=== PATIENT | male | born 1970 | race Caucasian/White ===

== ENCOUNTER 2016-11-10 09:39 | Observation (INO) | payer OTHER ==
--- NOTE | ~2016-11-10 | DS ---
Discharge Summary [facility] [address] [place]. [address] NAME: DEVANTE BLANCAS : 70 STATUS : DIS Shwetha PAT#: [id number] AGE: 46 ADM/REG DATE : 11/10/16 MR#: [id number] REPORT SERV DATE: 11/12/16 DICTATED BY: JR. PEREZ WILLIAM JOHN DATE: 11/11/16 REPORT STATUS : Draft TRANSCRIBED BY: MODL DATE: 11/11/16 ADMISSION DATE: 11/10/2016 DISCHARGE DATE: 11/11/2016 DISCHARGE DIAGNOSES: 1. Orthostatic dizziness. 2. Hypertension. 3. Hyperlipidemia. OPERATIONS/PROCEDURES AND TREATMENTS: Include: 1. Echocardiogram done 11/11/2016, which was a borderline left ventricular systolic function, ejection fraction of 50% with right ventricle not well seen, but probably normal. There was no significant valvular regurgitation. Bubble study was poorly visualized. 2. MRI of the brain done 11/10/2016, showed no evidence of acute infarct or bleed. 3. MRA of the neck and head were normal studies. 4. Chest x-ray done 11/10/2016 showed no evidence of cardiopulmonary disease. 5. CT of the brain done 11/10/2016 was unremarkable. DISCHARGE MEDICATIONS: Include: 1. Wellbutrin 300 mg orally daily. 2. TriCor 145 mg every morning. 3. Pravachol 40 mg daily. 4. Metoprolol 50 mg orally daily. 5. Propranolol 10 mg orally daily as needed. 6. Altace 10 mg orally daily. HOSPITAL COURSE: The patient is a very pleasant 46-year-old male, who felt dizzy and faint while walking. Lowered himself to the ground, said he had some difficulty speaking. Symptoms totally resolved by the time he came to [facility]. Once in the emergency room, the patient was somewhat hypotensive. He did not have orthostasis. CT of the head in the emergency room was unremarkable. EKG unremarkable. The patient was admitted to the Clinical Decision Unit. He had an MRI of the head, MRA of the neck and head, and echocardiogram which are detailed above. He had repeat orthostatic vital signs. He was ambulated and had no further difficulty. It is suspected the patient was transiently hypotensive, possibly as a result of his antihypertensive medications. We have chosen to resume his metoprolol and lisinopril or MICHAEL inhibitor while holding his calcium channel tony. The patient will follow up with his primary care physician, Dr. Becerra in one to two weeks. DISCHARGE DIET: Regular. ACTIVITY: As tolerated. For discharge exam and laboratory, please see daily progress note. Discharge Summary [address] [place]. [address] NAME: DEVANTE BLANCAS : 70 STATUS : DIS Shwetha PAT#: [id number] AGE: 46 ADM/REG DATE : 11/10/16 MR#: [id number] REPORT SERV DATE: 11/12/16 DICTATED BY: JR. PEREZ WILLIAM JOHN DATE: 11/11/16 REPORT STATUS : Draft TRANSCRIBED BY: RAFA DATE: 11/11/16 WELEANOR/RAFA Keith Perez Jr, MD / [id number] CC: Keith Perez Jr, MD Kirk Wilcox, M.D.
--- NOTE | ~2016-11-10 | HP ---
History And Physical [id number] [place]. [address] NAME: DEVANTE BLANCAS : 70 STATUS : ADM Shwetha PAT#: [id number] AGE: 46 ADM/REG DATE : 11/10/16 MR#: [id number] REPORT SERV DATE: 11/10/16 DICTATED BY: MIKY TILLMAN DATE: 11/10/16 REPORT STATUS : Draft TRANSCRIBED BY: MODL DATE: 11/10/16 DATE OF ADMISSION: 11/10/2016 CHIEF COMPLAINT: Dizziness. HISTORY OF PRESENT ILLNESS: The patient is a very pleasant 46-year-old white male, who works at [employer] in the [employer]. He was helping with the play today and had an episode where he felt dizzy and faint. He lowered himself to the ground. He then had some what sounds like dysarthria and some difficulty with cognition. His arrived, drove him to the ER, about 30 minutes after the episode, the symptoms were totally resolved. He is now feeling well. He had some orthostatics in the ER. He was hypotensive, lying flat but then his blood pressure went up while standing. His heart rate did go up while standing but only about 9 beats per minute. He had no chest pain. No shortness of breath. He had a recent flu about two weeks ago was diagnosed, treated with Tamiflu and this was confirmed with the swab. He states he has been eating and drinking normally. He has a little bit of residual cough, but he has had no documented fevers. No nausea, vomiting, or diarrhea. He states his intake has been good as far as oral intake. PAST MEDICAL HISTORY: 1. Hypertension. 2. Traumatic brain injury. 3. Hyperlipidemia. PAST SURGICAL HISTORY: He had a spinal fusion. ALLERGIES: PENICILLIN, THE FLU VACCINE. SOCIAL HISTORY: He denies tobacco use. He works at [employer]. He drinks occasional alcohol but not consistently. FAMILY HISTORY: His mother and father both have hypertension. HOME MEDICATIONS: Reviewed and attached. REVIEW OF SYSTEMS: Full 10-point review of systems obtained. Pertinent positives as mentioned in the HPI. PHYSICAL EXAMINATION: CURRENT VITAL SIGNS: Blood pressure 121/73, sats 97%, pulse 64, temperature was 98.2 with a respiratory rate of 16. His lowest blood pressure was 95/70. He was not orthostatic in the emergency department. GENERAL: Well-developed white male, in no apparent distress. HEENT: Normocephalic, atraumatic. Throat is clear. NECK: Supple. HEART: Regular rate and rhythm. LUNGS: Grossly clear. History And Physical [address] [place]. [address] NAME: DEVANTE BLANCAS : 70 STATUS : ADM Shwetha PAT#: [id number] AGE: 46 ADM/REG DATE : 11/10/16 MR#: [id number] REPORT SERV DATE: 11/10/16 DICTATED BY: MIKY TILLMAN DATE: 11/10/16 REPORT STATUS : Draft TRANSCRIBED BY: RAFA DATE: 11/10/16 ABDOMEN: Soft, nontender. EXTREMITIES: Warm and dry. SKIN: Intact without rash or lesion. NEUROLOGIC: He is alert. He is oriented to person, place, and time. Speech is intact. Cranial nerves II through XII intact. Strength and tone are symmetrical in all four extremities at 5/5. LABORATORY AND X-RAY DATA: CBC and coags are normal. Lactate is normal. Basic metabolic panel is normal. LFTs are normal. Troponin is negative at 0.02. Brain CT is unrevealing. EKG shows sinus rhythm with no acute ST-T wave changes. ASSESSMENT/PLAN: 1. A 30 minute episode of dizziness with dysarthria and cognition difficulty, certainly must rule out TIA or stroke; however, I suspect he could have had some mild orthostasis this morning as he had a low blood pressure in the ER. I am going to hold his antihypertensives for now. We will hydrate him overnight. He does have a BUN of 21 which could indicate some prerenal azotemia. We will work him up for TIA or stroke with MRI, MRA, and echocardiogram. We will do some orthostatics in the morning after giving him a couple liters of normal saline. Place him on an aspirin overnight. Hopefully if everything is negative, he could potentially go home tomorrow. 2. Hypertension. Holding antihypertensives until I see how his blood pressure does in the next 24 hours as he had a low blood pressure earlier today. 3. Hyperlipidemia. 4. Deep venous thrombosis prophylaxis with subcutaneous Lovenox. 5. Disposition pending above. NABIL/RAFA Miky Tillman M.D. / [id number] CC: Keith Perez Jr, MD Kirk Wilcox, M.D.
[2016-11-10 10:36] LABS: BASOPHILS 0.3 %; BASOPHILS ABSOLUTE 0.02 10/3/uL (0.0-0.16); EOSINOPHILS 4.7 %; EOSINOPHILS ABSOLUTE 0.29 10/3/uL (0.0-0.53); HEMATOCRIT 40.7 % (40.0-51.0); HEMOGLOBIN 14.1 g/dL (13.6-17.8); IMMATURE GRANULOCYTES 0.2 %; IMMATURE GRANULOCYTES ABSOLUTE 0.01 10/3/uL (0.0-0.11); LYMPHOCYTES 29.1 %; MEAN CORPUS HGB CONC 34.6 g/dL (32.0-36.0); MEAN CORPUSCULAR HEMOGLOB 30.1 pg (26.0-34.0); MEAN PLATELET VOLUME 9.3 fL (9.2-13.0); MONOCYTES 10.3 %; MONOCYTES ABSOLUTE 0.64 10/3/uL (0.21-1.20); NEUTROPHILS 55.4 %; NEUTROPHILS ABSOLUTE 3.43 10/3/uL (2.02-8.40); PLATELET COUNT 300 10/3/uL (150-400); RBC DISTRIBUTION WIDTH 12.3 % (12.0-16.0); RED CELL COUNT 4.68 10/6/uL (4.7-6.1)
[2016-11-10 10:37] LABS: ER CBC TAT 0 Hrs 09 Mins; MANUAL DIFF NO %; WHITE BLOOD CELLS 6.2 10/3/uL (4.5-10.5)
[2016-11-10 10:45] LABS: PARTIAL THROMBO TIME 25.5 SEC (22.5-37.2); PROTIME (NOT ORD) 12.7 SEC (12.0-14.5)
[2016-11-10 10:55] LABS: ALBUMIN 3.7 G/DL (3.5-5.0); ALKALINE PHOSPHATASE 43 U/L (45-117); BUN (BLOOD UREA NITROGEN) 21 MG/DL (6-23); CALCIUM, SERUM 8.5 MG/DL (8.5-10.4); CHEST PAIN PROFILE TAT 0 Hrs 27 Mins; CHLORIDE, SERUM 108 MMOL/L (96-112); CO2 (CARBON DIOXIDE) 26 MMOL/L (24-34); DIRECT BILIRUBIN 0.1 MG/DL (0.0-0.4); GFR AFRICAN AMERICAN 104 ML/MIN (>=60); GFR NON AFRICAN AMERICAN 90 ML/MIN (>=60); GLUCOSE, SERUM 101 MG/DL (60-99); INDIRECT BILIRUBIN(NOT ORDER) 0.7 MG/DL (0.1-0.9); POTASSIUM, SERUM 4.4 MMOL/L (3.5-5.3); SGOT(AST) 15 U/L (5-40); SGPT(ALT) 36 U/L (5-65); SODIUM, SERUM 140 MMOL/L (135-148); TOTAL BILIRUBIN 0.8 MG/DL (0-1.2); TOTAL PROTEIN 7.5 G/DL (6.0-8.5); TROPONIN I <0.02 NG/ML (<0.05)
[2016-11-10] MEDS ORDERED: WELLXL300 PO (12:39)
[2016-11-10] MEDS ORDERED: TOPXL50 PO (12:39)
[2016-11-10] MEDS ORDERED: BEN25 PO (12:40)
[2016-11-10] MEDS ORDERED: ALTACE10 MG PO (12:40)
[2016-11-10] MEDS ORDERED: NXL9 PO (12:40)
[2016-11-10] MEDS ORDERED: PRAVACHOL40 MG PO (12:40)
[2016-11-10] MEDS ORDERED: I10 PO (12:40)
[2016-11-10] MEDS ORDERED: ALKA-SELTZER P1 EAC3 PO (12:41)
[2016-11-10] MEDS ORDERED: TAMIFLU PO (12:41)
[2016-11-10] MEDS ORDERED: TRICOR145 PO (12:41)
[2016-11-10] MEDS ORDERED: OTC EYE DROP OPH (12:42)
[2016-11-10 18:23] LABS: CHOLESTEROL 252 MG/DL (< 200); HDL CHOLESTEROL 50 MG/DL (> 39); LDL CHOLESTEROL 176 MG/DL (< 130); NON-HDL CHOLESTEROL 202 MG/DL (< 160); TRIGLYCERIDE 131 MG/DL (< 150); TROPONIN I <0.02 NG/ML (<0.05)
[2016-11-10 19:50] LABS: INFLUENZA A SCREEN NEGATIVE (NEGATIVE); INFLUENZA B SCREEN NEGATIVE (NEGATIVE)
== END 2016-11-11 15:06 | disposition home or self-care (01) ==
LOC: ER 09:39 → CDU1 13:30
PROVIDERS: Emergency Medicine; Internal Medicine
DX: R42 Dizziness and giddiness (principal); I10 Essential (primary) hypertension; E78.5 Hyperlipidemia, unspecified; Z79.899 Other long term (current) drug therapy; Z98.1 Arthrodesis status; Z88.0 Allergy status to penicillin; Z88.8 Allergy status to other drugs, medicaments and biological substances; Z82.49 Family history of ischemic heart disease and other diseases of the circulatory system
CPT/HCPCS: 70450; 70544; 70548; 70551-52; 71020; 80048; 80061; 80076; 83036; 83605; 83735; 84484; 85025; 85610; 85730; 87804; 90686; 93005; 96372; 99285; A9270-GY; A9577; C8929; G0008; G0378; Q9957